=== PATIENT | female | born 1970 | race Hispanic/Latino ===

== ENCOUNTER → 2025-02-25 | Outpatient (REF) | payer OTHER ==
[~2025-02-25] MED LIST: ASPIRIN EC81 MG PO; CINNAMON PO; FISH OIL PO; PROBIOTIC PO
== END ==
LOC: MAMMO 10:21
PROVIDERS: ATTEND Family Medicine Obesity Medicine
DX: Z12.31 Encounter for screening mammogram for malignant neoplasm of breast (principal); M85.88 Other specified disorders of bone density and structure, other site; Z78.0 Asymptomatic menopausal state
CPT/HCPCS: 77067; 77080